=== PATIENT | male | born 1980 | race Caucasian/White ===

== ENCOUNTER 2016-10-08 21:54 | Emergency (ER) | payer MEDICAID ==
--- NOTE | 2016-10-08 23:01 | EDPHY ---
H & P HPI/ROS: Chief complaint: Left ankle injury History of present illness: 35-year-old male presents to the emergency department for a left ankle injury. Patient reports just prior to arrival he rolled his ankle. Since then he has had pain to the outer aspect of his ankle. He states last fall he broke his ankle in the same region. No report of open wounds, paresthesias or abnormal coolness to the left lower extremity. No other trauma reported. Smoking Status: Current every day smoker Physical Exam: General appearance: Alert, nontoxic Musculoskeletal: Tenderness over the lateral malleolus. The rest the ankle including over the Achilles is unremarkable. The knee, lower leg and foot are unremarkable. Vascular exam: Normal pulses and capillary refill in the foot Neurologic exam: The patient has normal sensation and motor function distal to the injury. Constitutional: Initial Vital Signs Temperature (C) 36.3 C 10/08/16 22:05 Heart Rate 89 10/08/16 22:05 Respiratory Rate 16 10/08/16 22:05 Blood Pressure 119/94 H 10/08/16 22:05 O2 Sat (%) 98 10/08/16 22:05 O2 Delivery Mode Room Air Allergies/Adverse Reactions: No Known Allergies Allergy (Verified 10/08/16 22:05) Home Medications: Medication Instructions Recorded Hydrocodone/APAP 5/325 [[place] 1 tab PO Q4 #6 tab 10/08/16 5/325 (*)] Medical Decision Making - Diagnostics Imaging: X-ray series of the left ankle reveals an acute distal fibular fracture in the same site as previous fracture versus a nonhealing fracture Procedures: Patient was placed in a [place] boot. ED Course/Re-evaluation: Patient seen under the supervision of my secondary supervising physician Dr. Laura Ortiz. Patient presents to the emergency department for left ankle injury. Lower extremity is neurovascularly intact. X-ray is concerning for acute fracture versus nonhealing fracture. He is placed in a [place] boot. By history and physical exam no evidence of trauma to other parts of the body. Patient is discharged home. Home care is discussed. He is referred to Orthopedics for continued evaluation and care. Return precautions given. Patient voiced understanding and agreement with plan. Departure - Departure Disposition: Home, Routine, Self-Care Clinical Impression: Ankle fracture Qualifiers: Encounter type: initial encounter Fracture type: closed Laterality: left Qualified Code(s): S82.892A - Other fracture of left lower leg, initial encounter for closed fracture Condition: Good Instructions: Ankle Fracture (ED) Additional Instructions: Follow-up with orthopedics for recheck If symptoms worsen or new symptoms develop return to the emergency department for recheck Referrals: NONE *PRIMARY CARE P,. [Primary Care Provider] - As per Instructions Nohemy Singer MD [Medical Doctor] - As per Instructions Prescriptions: Hydrocodone/APAP 5/325 [[place] 5/325 (*)] 1 tab PO Q4 #6 tab
[2016-10-08] MEDS ORDERED: HYDROCOD/APAP 5/325 PREPACK#6 BTL TAKEHOME ONE (23:13)
[2016-10-08 23:33] VITALS: BP 121/85; PULSE 85; RESP 20; TEMP 98.1; O2SAT 95
== END 2016-10-08 23:33 | disposition home or self-care (01) ==
DX: S82.892A Other fracture of left lower leg, initial encounter for closed fracture (principal); F17.200 Nicotine dependence, unspecified, uncomplicated; W18.39XA Other fall on same level, initial encounter
CPT/HCPCS: L4386

== ENCOUNTER 2017-04-22 16:00 | Emergency (ER) | payer MEDICAID ==
[2017-04-22 16:07] VITALS: RESP 16; TEMP 98.4
--- NOTE | 2017-04-22 17:29 | EDPHY ---
H & P Stated Complaint: l thigh pain HPI/ROS: Chief complaint: Left thigh pain History of present illness: This is a 36-year-old male who presents to the emergency department for left thigh pain. Patient was riding his skateboard when he fell off striking his left thigh against the ground. He has pain in the thigh since then. It hurts to ambulate. He denies other associated signs or symptoms including no open wounds. No abnormal coolness or paresthesias in the leg. No report of trauma to other parts of the body. - Personal History Current Tetanus/Diphtheria Vaccine: Unsure - Medical/Surgical History Hx Asthma: No Hx Chronic Respiratory Disease: No Hx Diabetes: No Hx Cardiac Disease: No Hx Renal Disease: No Hx Cirrhosis: No Hx Alcoholism: Yes Hx HIV/AIDS: No Hx Splenectomy or Spleen Trauma: No Other PMH: L leg fx - Social History Smoking Status: Current every day smoker - Physical Exam Exam: General: Alert, nontoxic Skin: No lesions consistent with trauma to the left leg Musculoskeletal: Mild tenderness left thigh. He is moving the left hip, left knee, left ankle and digits of the foot well. Muscle compartments of the left thigh are soft and pliable. He is ambulating well. Vascular: DP and PT pulses 2+. Neurologic: Sensation intact in the left leg. Constitutional: Initial Vital Signs Temperature (C) 36.9 C 04/22/17 16:05 Heart Rate 132 H 04/22/17 16:05 Respiratory Rate 16 04/22/17 16:05 Blood Pressure 119/79 04/22/17 16:05 O2 Sat (%) 96 04/22/17 16:05 O2 Delivery Mode Room Air Allergies/Adverse Reactions: No Known Allergies Allergy (Verified 10/08/16 22:05) Home Medications: Medication Instructions Recorded Hydrocodone/APAP 5/325 [[place] 1 tab PO Q4 #6 tab 10/08/16 5/325 (*)] Medical Decision Making - Diagnostics Imaging: I viewed and interpreted images myself ED Course/Re-evaluation: Patient seen under the supervision of my primary supervising physician Dr. Yael Louis. Patient presents to the emergency department for an injury to his left thigh. The leg is neurovascularly intact. X-rays negative. Likely contusion. Home care is discussed. Return precautions are given. Differential Diagnosis: Included but not limited to contusion, sprain or strain, bony fracture Departure - Departure Disposition: Home, Routine, Self-Care Clinical Impression: Contusion Qualifiers: Encounter type: initial encounter Contusion area: thigh Laterality: left Qualified Code(s): S70.12XA - Contusion of left thigh, initial encounter Condition: Good Instructions: Contusion in Adults (ED) Additional Instructions: Follow-up with a primary care doctor for recheck If symptoms worsen or new symptoms develop return to the emergency room for recheck Referrals: NONE *PRIMARY CARE P,. [Primary Care Provider] - As per Instructions
[2017-04-22 17:35] VITALS: BP 107/67; PULSE 97; O2SAT 95
== END 2017-04-22 17:39 | disposition home or self-care (01) ==
LOC: EDUNIT#
DX: S70.12XA Contusion of left thigh, initial encounter (principal); F17.200 Nicotine dependence, unspecified, uncomplicated; V00.131A Fall from skateboard, initial encounter; Y99.8 Other external cause status; Y93.51 Activity, roller skating (inline) and skateboarding

== ENCOUNTER 2017-05-29 12:26 | Emergency (ER) | payer MEDICAID ==
[2017-05-29 12:35] VITALS: BP 122/72; PULSE 79; RESP 16; TEMP 98.2; O2SAT 95
== END 2017-05-29 13:30 | disposition left against medical advice (07) ==
DX: Z53.21 Procedure and treatment not carried out due to patient leaving prior to being seen by health care provider (principal)

== ENCOUNTER 2017-06-03 12:12 | Emergency (ER) | payer MEDICAID, OTHER ==
[2017-06-03] MEDS ORDERED: TDAP ADULT 0.5 ML INJ (BOOSTRIX) IM ONE (12:18)
[2017-06-03 12:40] VITALS: PULSE 83
--- NOTE | 2017-06-03 12:57 | EDPHY ---
H & P Stated Complaint: laceration on forehead Source: Patient - Medical/Surgical History Hx Asthma: No Hx Chronic Respiratory Disease: No Hx Diabetes: No Hx Cardiac Disease: No Hx Renal Disease: No Hx Cirrhosis: No Hx Alcoholism: Yes Hx HIV/AIDS: No Hx Splenectomy or Spleen Trauma: No Other PMH: L leg fx - Social History Smoking Status: Current every day smoker HPI/ROS: HPI CHIEF COMPLAINT: Head injury, laceration of forehead, fall HISTORY OF PRESENT ILLNESS: This patient is a 36-year-old male otherwise healthy no significant medical history he was arrested at some point last night. He was in intermediate. In his own cell. He presents emergency room with a head injury right forehead hematoma and vertical laceration. Patient is unsure exactly what happened. Of note additionally there is a tongue laceration that is nonsuturable on the right side of his tongue. His possibly had a seizure. Patient does not recall any events. States he woke up and had a headache with a head injury. He does report that he smoked marijuana yesterday. Denies alcohol. He was rest at some point yesterday at the [employer] [facility] [employer]. Denies drug use. Denies seizure disorder. Tetanus shot has been updated here in emergency room. Past Medical History: Denies significant medical history Past Surgical History: Denies surgical history Social History: Marijuana use yesterday, denies illicit drugs or alcohol. Incarcerated currently in intermediate. Family History: Noncontributory. ROS REVIEW OF SYSTEMS: A comprehensive 10 point review of systems is otherwise negative aside from elements mentioned in the history of present illness. Exam Constitutional appears well nontoxic, triage nursing summary reviewed, vital signs reviewed, awake/alert. Eyes normal conjunctivae and sclera, EOMI, PERRLA. HENT head/neck: No midline cervical spine pain, no neck pain, forehead right- sided hematoma present, vertical laceration. Oropharynx shows a lateral tongue laceration nonsuturable. Right-sided. moist mucus membranes, no epistaxis, neck supple/ no meningismus, no raccoon eyes. Respiratory clear to auscultation bilaterally, normal breath sounds, no respiratory distress, no wheezing. Cardiovascular rate normal, regular rhythm, no murmur, no edema, distal pulses normal. Gastrointestinal soft, non-tender, no rebound, no guarding, normal bowel sounds, no distension, no pulsatile mass. Genitourinary no CVA tenderness. Musculoskeletal no midline vertebral tenderness, full range of motion, no calf swelling, no tenderness of extremities, no meningismus, good pulses, neurovascularly intact. Skin pink, warm, & dry, no rash, skin atraumatic. Neurologic awake, alert and oriented x 3, AAOx3, moves all 4 extremities equally, motor intact, sensory intact, CN II-XII intact, normal cerebellar, normal vision, normal speech. Psychiatric normal mood/affect. Heme/Lymph/Immune no lymphadenopathy. Differential Diagnosis: Includes but is not limited to in a particular order, closed-head injury, intracranial bleed, skull fracture, possible seizure, forehead hematoma, scalp hematoma, laceration Medical Decision Making: Plan for this patient IV established with IV fluid bolus, check basic blood work, CT head without contrast for trauma. Tetanus shot has been updated. Patient need is forehead laceration repaired. Re-evaluation: CT scan of the head without contrast reason for trauma. The results of the study are negative for acute traumatic in The study was read by Dr. Armijo I viewed the images myself on the PACS system. 1502: I did re-evaluate the patient this time is resting comfortably no complaints. His laceration on his forehead is been repaired. His CT scan shows no intracranial abnormality. Blood work has been reviewed. He is mentating appropriately acting normal. Normal neurological exam. Plan for discharge from the emergency room back to intermediate. It is possible he had a seizure. However this was unwitnessed. Bicarb normal. Understands return emergency room if develops worsening symptoms questions or concerns or new seizure activity. (Oliver Mckay) Constitutional: Initial Vital Signs Temperature (C) 36.9 C 06/03/17 12:34 Heart Rate 83 06/03/17 12:34 Respiratory Rate 16 06/03/17 12:34 Blood Pressure 127/97 H 06/03/17 12:34 O2 Sat (%) 97 06/03/17 12:34 O2 Delivery Mode Room Air Allergies/Adverse Reactions: No Known Allergies Allergy (Verified 05/29/17 12:31) Home Medications: Medication Instructions Recorded NK [No Known Home Meds] 05/29/17 Medical Decision Making - Diagnostics Imaging Results: Imaging Impressions Head CT 06/03/17 13:01 Impression: 1. Right frontal scalp hematoma. 2. Negative skull and brain. Results called and discussed with Oliver Mckay MD, at 06/03/2017 13:27 Final results are concordant with the initial interpretation. General information for patients regarding this examination can be found at [email or web address]. If you have questions or comments about this report, please contact me at (hospital) or [phone] (cell). Procedures: 1:45 p.m. My involvement the care this patient is solely for the procedure. Please see the note of Dr. Mckay for all other aspects of care PROCEDURE: Laceration repair Consent: Verbal Location: Forehead Length of repair: 2.5 cm Complexity: Complex Layer involvement: Single Anesthesia: Local per 1% lidocaine plain. 7 mL Irrigation: Extensive Debridement: None Procedure description: Following good anesthesia, the wound was copiously irrigated. Wound bed was explored and there is no foreign body noted. No exposure of the galea or frontalis. Wound borders were approximated well with good hemostasis. Tolerated well without complication. Suture/Staple material: 6-0 Prolene. Five simple interrupted sutures Wound care: Routine as discussed Suture/Staple removal: 5-7 Days (Bharathi Mohan) - Data Points Laboratory Results: Laboratory Results 06/03/17 13:00 06/03/17 13:00 06/03/17 06/03/17 06/03/17 14:05 13:00 13:00 WBC 7.36 10^3/uL 10^3/uL (3.80-9.50) RBC 4.16 10^6/uL L 10^6/uL (4.40-6.38) Hgb 13.5 g/dL L g/dL (13.7-17.5) Hct 39.5 % L % (40.0-51.0) MCV 95.0 fL fL (81.5-99.8) MCH 32.5 pg pg (27.9-34.1) MCHC 34.2 g/dL g/dL (32.4-36.7) RDW 13.2 % % (11.5-15.2) Plt Count 104 10^3/uL L 10^3/uL (150-400) MPV 10.0 fL fL (8.7-11.7) Neut % (Auto) 84.5 % H % (39.3-74.2) Lymph % (Auto) 5.8 % L % (15.0-45.0) [place] % (Auto) 8.8 % % (4.5-13.0) Eos % (Auto) 0.1 % L % (0.6-7.6) Baso % (Auto) 0.4 % % (0.3-1.7) Nucleat RBC Rel Count 0.0 % % (0.0-0.2) Absolute Neuts (auto) 6.21 10^3/uL 10^3/uL (1.70-6.50) Absolute Lymphs (auto) 0.43 10^3/uL L 10^3/uL (1.00-3.00) Absolute Monos (auto) 0.65 10^3/uL 10^3/uL (0.30-0.80) Absolute Eos (auto) 0.01 10^3/uL L 10^3/uL (0.03-0.40) Absolute Basos (auto) 0.03 10^3/uL 10^3/uL (0.02-0.10) Absolute Nucleated RBC 0.00 10^3/uL 10^3/uL (0-0.01) Immature Gran % 0.4 % % (0.0-1.1) Immature Gran # 0.03 10^3/uL 10^3/uL (0.00-0.10) Sodium 140 mEq/L mEq/L (134-144) Potassium 4.4 mEq/L mEq/L (3.5-5.2) Chloride 98 mEq/L mEq/L (97-110) Carbon Dioxide 31 mEq/l mEq/l (22-31) Anion Gap 11 mEq/L mEq/L (8-16) BUN 10 mg/dL mg/dL (7-23) Creatinine 0.8 mg/dL mg/dL (0.7-1.3) Estimated GFR > 60 Glucose 113 mg/dL H mg/dL (70-100) Calcium 10.0 mg/dL mg/dL (8.5-10.4) Urine Color YELLOW Urine Appearance CLEAR Urine pH 8.0 H (5.0-7.5) Ur Specific [place] 1.025 (1.002-1.030) Urine Protein 2+ H (NEGATIVE) Urine Ketones NEGATIVE (NEGATIVE) Urine Blood NEGATIVE (NEGATIVE) Urine Nitrate NEGATIVE (NEGATIVE) Urine Bilirubin NEGATIVE (NEGATIVE) Urine Urobilinogen 2.0 EU H EU (0.2-1.0) Ur Leukocyte Esterase NEGATIVE (NEGATIVE) Urine RBC 1-3 /hpf /hpf (0-3) Urine WBC 3-5 /hpf H /hpf (0-3) Ur Epithelial Cells TRACE /lpf /lpf (NONE-1+) Urine Mucus 2+ /lpf H /lpf (NONE-1+) Urine Glucose NEGATIVE (NEGATIVE) Urine Opiates Screen NEGATIVE (NEGATIVE) Urine Barbiturates NEGATIVE (NEGATIVE) Ur Phencyclidine Scrn NEGATIVE (NEGATIVE) Ur Amphetamine Screen NEGATIVE (NEGATIVE) U Benzodiazepines Scrn NEGATIVE (NEGATIVE) Urine Cocaine Screen NEGATIVE (NEGATIVE) U Marijuana (THC) Screen NON-NEGATIVE H (NEGATIVE) Medications Given: Discontinued Medications Acetaminophen (Tylenol) 1,000 mg PO EDNOW ONE Stop: 06/03/17 13:28 Last Admin: 06/03/17 13:28 Dose: 1,000 mg Diphtheria/Tetanus/Acell Pertussis (Boostrix) 0.5 ml IM .ONCE ONE Stop: 06/03/17 12:19 Last Admin: 06/03/17 12:21 Dose: 0.5 ml Sodium Chloride (Ns) 1,000 mls @ 0 mls/hr IV EDNOW ONE; Wide Open PRN Reason: Protocol Stop: 06/03/17 13:02 Last Admin: 06/03/17 13:28 Dose: 1,000 mls Departure - Departure Disposition: Home, Routine, Self-Care Clinical Impression: Forehead laceration Qualifiers: Encounter type: initial encounter Qualified Code(s): S01.81XA - Laceration without foreign body of other part of head, initial encounter Traumatic hematoma of forehead Qualifiers: Encounter type: initial encounter Qualified Code(s): S00.83XA - Contusion of other part of head, initial encounter Head injury Qualifiers: Encounter type: initial encounter Qualified Code(s): S09.90XA - Unspecified injury of head, initial encounter Condition: Good Instructions: Care For Your Stitches (ED), Laceration (ED), Head Injury (ED) Additional Instructions: 1.Please have her sutures removed in 7 days. 2. Return to the emergency room if develops any worsening symptoms includes worsening headache, vomiting. 3. As always with every laceration watch for infection this includes redness, drainage, pus. If she this return to the ER. Referrals: NONE *PRIMARY CARE P,. [Primary Care Provider] - As per Instructions
[2017-06-03] MEDS ORDERED: NS 1,000 ML IV ONE (13:01)
[2017-06-03 13:20] LABS: PLATELET COUNT 104 10^3/uL (150-400)
[2017-06-03] MEDS ORDERED: ACETAMINOPHEN 500 MG TAB ONE (13:24)
[2017-06-03] MEDS ORDERED: ACETAMINOPHEN 500 MG TAB PO ONE (13:27)
[2017-06-03 15:07] VITALS: BP 132/76; RESP 15; TEMP 99.5; O2SAT 96
--- NOTE | 2017-06-03 16:43 | ASDISCHSUM ---
Discharge Information Plan Status:Homeless/Fpc Medically Cleared to Leave: Discharge Date:06/03/2017 03:17 PM CM D/C Disposition:Law Enforcement/Court/Custodial ADT D/C Disposition:Home, Routine, Self-Care Projected Discharge Date:06/03/2017 03:17 PM Transportation at D/C: Discharge Delay Reason: Follow-Up Date:06/03/2017 03:17 PM Discharge Slot: Final Diagnosis: Placement Information Patient Contact Information Contact Name:CHARLIESADIA Relationship: Address: Home Phone: Work Phone: City: Alternate Phone: State/Zip Code: Email: Financial Information Financial Class:Commercial Primary Plan Desc:[facility] Primary Plan Number:[id number] Secondary Plan Desc: Secondary Plan Number: Assessment Information LACE LACE Emergency dept visits in Answers: 4+ last 6 months Score: 4 Date Signed: 06/03/2017 04:39 PM Electronically Signed By:Shaylee Sullivan RN Intervention Information
--- NOTE | 2017-06-03 16:43 | ASDISCHSUM ---
Discharge Information Plan Status:Homeless/Senior Care Medically Cleared to Leave: Discharge Date:06/03/2017 03:17 PM CM D/C Disposition:Law Enforcement/Court/Fpc ADT D/C Disposition:Home, Routine, Self-Care Projected Discharge Date:06/03/2017 03:17 PM Transportation at D/C: Discharge Delay Reason: Follow-Up Date:06/03/2017 03:17 PM Discharge Slot: Final Diagnosis: Placement Information Patient Contact Information Contact Name:CHARLIESADIA Relationship: Address: Home Phone: Work Phone: City: Alternate Phone: State/Zip Code: Email: Financial Information Financial Class:Commercial Primary Plan Desc:[facility] Primary Plan Number:[id number] Secondary Plan Desc: Secondary Plan Number: Assessment Information LACE LACE Emergency dept visits in Answers: 4+ last 6 months Score: 4 Date Signed: 06/03/2017 04:39 PM Electronically Signed By:Shaylee Sullivan RN Intervention Information
--- NOTE | 2017-06-03 16:43 | ASDISCHSUM ---
Discharge Information Plan Status:Homeless/Residential Medically Cleared to Leave: Discharge Date:06/03/2017 03:17 PM CM D/C Disposition:Law Enforcement/Court/Snf ADT D/C Disposition:Home, Routine, Self-Care Projected Discharge Date:06/03/2017 03:17 PM Transportation at D/C: Discharge Delay Reason: Follow-Up Date:06/03/2017 03:17 PM Discharge Slot: Final Diagnosis: Placement Information Patient Contact Information Contact Name:CHARLIESADIA Relationship: Address: Home Phone: Work Phone: City: Alternate Phone: State/Zip Code: Email: Financial Information Financial Class:Commercial Primary Plan Desc:[facility] Primary Plan Number:[id number] Secondary Plan Desc: Secondary Plan Number: Assessment Information LACE LACE Emergency dept visits in Answers: 4+ last 6 months Score: 4 Date Signed: 06/03/2017 04:39 PM Electronically Signed By:Shaylee Sullivan RN Intervention Information
== END 2017-06-03 15:17 | disposition home or self-care (01) ==
PROC: 0HQ1XZZ Repair Face Skin, External Approach (ICD-10-PCS; principal; 2017-06-03)
DX: S01.81XA Laceration without foreign body of other part of head, initial encounter (principal); F17.200 Nicotine dependence, unspecified, uncomplicated; E86.9 Volume depletion, unspecified; Z23 Encounter for immunization; X58.XXXA Exposure to other specified factors, initial encounter
CPT/HCPCS: 80305

== ENCOUNTER 2017-06-14 07:34 | Emergency (ER) | payer MEDICAID, OTHER ==
[2017-06-14] MEDS ORDERED: LORazepam 1 MG TAB PO ONE (07:43)
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
[2017-06-14] MEDS ORDERED: NS 1,000 ML IV ONE ×2 (09:02)
--- NOTE | 2017-06-14 09:21 | CPEKG ---
Heart Rate: 85 RR Interval: 706 P-R Interval: 160 QRSD Interval: 96 QT Interval: 352 QTC Interval: 419 P [place]: 78 QRS [place]: -89 T Wave [place]: 74 EKG Severity - ABNORMAL ECG - EKG Impression: SINUS RHYTHM EKG Impression: LEFT ANTERIOR FASCICULAR BLOCK Electronically Signed By: Jon Martinez 14-Jun-2017 09:23:43
[2017-06-14 09:23] VITALS: BP 128/90; RESP 18
[2017-06-14 09:30] LABS: % IMMATURE GRANULYOCYTES 0.4 % (0.0-1.1); ABSOLUTE IMMATURE GRANULOCYTES 0.02 10^3/uL (0.00-0.10); ADD DIFF? NO; ADD MORPH? NO; ADD SCAN? NO; ATYPICAL LYMPHOCYTE FLAG 0 (0-99); FRAGMENT RBC FLAG 0 (0-99); HEMATOCRIT 40.9 % (40.0-51.0); LEFT SHIFT FLG 0 (0-99); LIPEMIA HEMOLYSIS FLAG 90 (0-99); MEAN CELL HEMOGLOBIN CONCENTR. 34.2 g/dL (32.4-36.7); MEAN CELL VOLUME 93.6 fL (81.5-99.8); MEAN PLATELET VOLUME 9.1 fL (8.7-11.7); PLATELET CLUMPS FLAG 0 (0-99); PLATELET COUNT 232 10^3/uL (150-400); RED BLOOD CELL COUNT 4.37 10^6/uL (4.40-6.38); RED CELL DISTRIBUTION WIDTH 13.8 % (11.5-15.2)
[2017-06-14 09:38] LABS: INR 1.09 (0.83-1.16)
[2017-06-14 09:43] LABS: ALANINE AMINOTRANSFERASE 190 IU/L (21-72); ALBUMIN 4.6 g/dL (3.5-5.0); ALKALINE PHOSPHATASE 83 IU/L (38-126); ANION GAP 16 mEq/L (8-16); ASPARTATE AMINOTRANSFERASE 210 IU/L (17-59); BILIRUBIN-CONJUGATED 0.2 mg/dL (0.0-0.5); BILIRUBIN-UNCONJUGATED 0.8 mg/dL (0.0-1.1); CARBON DIOXIDE 25 mEq/l (22-31); CHLORIDE 100 mEq/L (97-110); CREATININE 0.8 mg/dL (0.7-1.3); GLOMERULAR FILTRATION RATE > 60; GLUCOSE 102 mg/dL (70-100); SODIUM 141 mEq/L (134-144)
[2017-06-14] MEDS ORDERED: IOPAMIDOL (ISOVUE-300) 100 ML BTL ONE (10:31)
[2017-06-14 12:03] VITALS: PULSE 86; TEMP 99.5; O2SAT 96
== END 2017-06-14 12:07 | disposition home or self-care (01) ==
LOC: EDUNIT#
DX: F10.10 Alcohol abuse, uncomplicated (principal); F17.200 Nicotine dependence, unspecified, uncomplicated; E86.9 Volume depletion, unspecified
CPT/HCPCS: Q9967

== ENCOUNTER 2017-08-06 09:42 | Inpatient (IN) | payer MEDICAID ==
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
[2017-08-06] MEDS ORDERED: OLANZapine DISINTEGR 5 MG TAB PO ONE (10:10)
[2017-08-06] MEDS ORDERED: LORazepam 2 MG/ML INJ IVP ONE (10:33)
[2017-08-06 10:38] LABS: PLATELET COUNT 129 10^3/uL (150-400)
[2017-08-06] MEDS ORDERED: OLANZapine DISINTEGR 10 MG TAB PO ONE (17:51)
[2017-08-07] MEDS ORDERED: NICOTINE 21 MG/24 HR PATCH TD ONE (11:13)
[2017-08-07] MEDS ORDERED: NICOTINE POLACRILEX 2 MG GUM B ONE (14:08)
[2017-08-08 12:48] VITALS: O2SAT 97
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
[2017-08-08] MEDS ORDERED: ACETAMINOPHEN 325 MG TAB PO PRN (15:45)
[2017-08-08] MEDS ORDERED: LORazepam 0.5 MG TAB PO PRN (15:45)
[2017-08-08] MEDS ORDERED: OLANZapine DISINTEGR 10 MG TAB PO PRN (15:45)
[2017-08-08] MEDS ORDERED: MAGNESIUM HYDROXIDE 30 ML UDCUP PO PRN (15:45)
[2017-08-08] MEDS ORDERED: MAG HYDROX/AL HYDROX/SIMETH 30 ML UDCUP PO PRN (15:45)
[2017-08-08] MEDS: NICOTINE 14 MG/24 HR PATCH TD SCH (16:18)
[2017-08-08] MEDS: NICOTINE POLACRILEX 2 MG GUM B PRN (16:18)
[2017-08-09 06:52] VITALS: BP 126/95; PULSE 70; RESP 14; TEMP 97.9
[2017-08-09] MEDS: NICOTINE 14 MG/24 HR PATCH TD SCH (11:10)
[2017-08-09] MEDS: NICOTINE POLACRILEX 2 MG GUM B PRN (11:13)
== END 2017-08-09 14:00 | disposition home or self-care (01) | DRG 885 ==
LOC: EDUNIT# → EEVIPCON 09:42 → BBEH 08-08 09:25
PROVIDERS: ADMIT Psychiatry & Neurology Behavioral Neurology & Neuropsychiatry; ATTEND Psychiatry & Neurology Behavioral Neurology & Neuropsychiatry
DX: F22 Delusional disorders (principal); S02.401A Maxillary fracture, unspecified side, initial encounter for closed fracture; F12.90 Cannabis use, unspecified, uncomplicated; Y09 Assault by unspecified means; Z59.0 Homelessness; Z72.0 Tobacco use
CPT/HCPCS: 80305; 96374; G0480; J2060

== ENCOUNTER 2017-10-07 11:50 | Emergency (ER) | payer MEDICAID ==
--- NOTE | 2017-10-07 12:21 | EDPHY ---
H & P Time Seen by Provider: 10/07/17 12:04 HPI/ROS: CHIEF COMPLAINT: "Pain to the head of my penis" HISTORY OF PRESENT ILLNESS: 36-year-old homeless immunocompetent non circumcised male complaining of 1 month of redness, swelling, pain to the glans of his penis, reproducible with retraction of foreskin. No dysuria, hematuria or increased frequency. No urethral discharge. No trauma. No straddle injury. No testicular pain. History of genital warts. PHYSICAL EXAM (Prior to examination, patient consented to physical exam, hands were washed and my usual and customary physical exam procedures followed) 1) GENERAL: Well-developed, well-nourished, alert and oriented. Appears to be in no acute distress. 2) HEAD: Normocephalic 3) HEENT: sclera anicteric 4) LUNGS: Breathing comfortably. 5) : Foreskin is retracted causing discomfort to the patient, the glans of the penis is erythematous, swollen. There is no urethral discharge. No fetid odor. Multiple genital warts noted. Scrotum unremarkable no signs of López' s gangrene, testicles nontender bilateral cremasteric reflex present and brisk. Smoking Status: Current every day smoker Constitutional: Initial Vital Signs Temperature (C) 37 C 10/07/17 11:53 Heart Rate 61 10/07/17 11:53 Respiratory Rate 20 10/07/17 11:53 Blood Pressure 135/93 H 10/07/17 11:53 O2 Sat (%) 97 10/07/17 11:53 O2 Delivery Mode Room Air Allergies/Adverse Reactions: No Known Allergies Allergy (Verified 10/07/17 11:53) Home Medications: Medication Instructions Recorded Nystatin/Triamcin 1 alexandra TP BID #45 oint...g. 10/07/17 [Nystatin-Triamcinolone Ointm] MDM/Departure - MDM ED Course/Re-evaluation: I think the patient's symptoms are more likely secondary to yeast balanitis.. We discussed some the challenges given his current homeless situation. Discussed penile cleansing. Plan will be discharged with topical antifungal. Doubt cellulitis. Doubt fourniers gangrene. Doubt cystitis. Care of patient under supervision of primary supervising physician Dr Groves - Depart Disposition: Home, Routine, Self-Care Clinical Impression: yeast balanitis Condition: Good Instructions: Balanitis (ED) Additional Instructions: Do not engage in sexual activity until you are symptom free. Return to the ER if you develop pain with urination, discharge from the penis or any other symptoms that concern you. Prescriptions: Nystatin/Triamcin [Nystatin-Triamcinolone Ointm] 1 alexandra TP BID #45 oint...g. Referrals: [facility],. [Clinic] - 5-7 days, call for appt.
[2017-10-07 13:06] VITALS: BP 128/78; PULSE 70; RESP 18; TEMP 98.6; O2SAT 95
== END 2017-10-07 13:06 | disposition home or self-care (01) ==
DX: B37.42 Candidal balanitis (principal); F17.200 Nicotine dependence, unspecified, uncomplicated

== ENCOUNTER 2018-02-06 15:54 | Emergency (ER) | payer MEDICAID, OTHER ==
--- NOTE | 2018-02-06 15:54 | EDPHY ---
H & P Time Seen by Provider: 02/06/18 15:54 Constitutional: Initial Vital Signs Temperature (C) 36.6 C 02/06/18 16:00 Heart Rate 170 H 02/06/18 16:00 Respiratory Rate 20 02/06/18 16:00 Blood Pressure 146/105 H 02/06/18 16:00 O2 Sat (%) 88 L 02/06/18 16:00 O2 Delivery Mode Room Air O2 (L/minute) 2 Allergies/Adverse Reactions: Unable to Assess Allergy (Unverified 02/06/18 16:13) Home Medications: Medication Instructions Recorded Nystatin/Triamcin 1 alexandra TP BID #45 oint...g. 10/07/17 [Nystatin-Triamcinolone Ointm] Medical Decision Making ED Course/Re-evaluation: CHIEF COMPLAINT: Meth and crack use HISTORY OF PRESENT ILLNESS: The patient is a 37 y/o male arriving via EMS on an [facility] hold placed by [employer] after taking crack and meth. Patient was found by bystanders who called EMS system. Patient has had multiple ER visits over the last several years for the same complaint. Patient denies any injuries denies loss of consciousness denies any recent trauma. Patient denies suicidal or homicidal behavior. He states he smoked "a little" crack and some "meth". The patient is agitated and not answering any further questions. REVIEW OF SYSTEMS: Unable to obtain secondary to patient's mental status. PHYSICAL EXAM: HR, BP, O2 Sat, RR. Temp noted General Appearance: Diaphoretic, alert, well hydrated, appropriate, and non- toxic appearing. Head: Atraumatic without scalp tenderness or obvious injury Eyes: Pupils equal, round, reactive to light and accommodation, EOMI, no trauma , no injection. Ears: Clear bilaterally, no perforation, normal landmarks Nose: Atraumatic, no rhinorrhea, clear. Throat: There is no erythema or exudates, no lesions, normal tonsils, mucus membranes moist. Neck: Supple, 2+ carotid upstroke, nontender, no lymphadenopathy. Respiratory: No retractions, no distress, no wheezes, and no accessory muscle use. Lungs are clear to auscultation bilaterally. Cardiovascular: Tachycardic, no murmurs, rubs, or gallops. Bilateral carotid, radial, dorsalis pedis, and posterior tibial pulses intact. Good capillary refill all extremities. Gastrointestinal: Abdomen is soft, nontender, non-distended, no masses, no rebound, no guarding, no peritoneal signs. Musculoskeletal: Normal active ROM of all extremities, atraumatic. Neurological: Alert, appropriate, and interactive. The patient has normal DTRs and non-focal cranial nerves, motor, sensory, and cerebellar exam. Skin: No rashes, good turgor, no nodules on palpation. Past medical history: Polysubstance abuse Past surgical history: Denies Family history: Denies Social history: Lives in [place], not employed, abuses drugs DIFFERENTIAL DIAGNOSIS: The differential diagnosis for the patient's altered mental status included but was not limited to hypoglycemia, infectious process, electrolyte abnormality, head injury, neurologic process, anemia, cardiac process, and intoxicants. MEDICAL DECISION MAKING: Patient is in no acute distress and is hemodynamically stable. We are awaiting for patient to sober up. Patient has known history of drug abuse and is here for evaluation. He is agitated, diaphoretic, and tachycardic. 2mg IM Ativan, 50mg IM Benadryl, and 10mg IM Haldol administered. 1554: I met EMS upon arrival 1807: Reassessed patient; he is somnolent. 2030: Patient care turned over to Dr. Martinez at shift change. (Daniel Barragan) 10:45 p.m. we are awaiting sobriety and transfer to the alcohol [facility]. Care transferred to Dr. Lujan at shift change. (Jon Martinez) - Data Points Medications Given: Lorazepam (Ativan Injection) 2 mg IM Q4HRS PRN PRN Reason: Anxiety, Unable to Take PO Stop: 08/05/18 16:06 Last Admin: 02/06/18 16:10 Dose: 2 mg Discontinued Medications Diphenhydramine HCl (Benadryl Injection) 50 mg IM EDNOW ONE Stop: 02/06/18 16:10 Last Admin: 02/06/18 16:10 Dose: 50 mg Haloperidol Lactate (Haldol Injection) 10 mg IM EDNOW ONE Stop: 02/06/18 16:10 Last Admin: 02/06/18 16:09 Dose: 10 mg Departure - Departure Disposition: Home, Routine, Self-Care Clinical Impression: Polysubstance abuse Instructions: Methamphetamine Abuse (ED), Polysubstance Abuse (ED) Additional Instructions: 1. Please refrain from abusing drugs. 2. Return to the emergency department immediately for fever, vomiting, confusion , headache, abdominal pain or other worsening of condition. 3. Followup with your primary care physician within 72 hours for reevaluation. Referrals: [facility] [Outside] - As per Instructions Report Scribed for: Daniel Barragan Report Scribed by: Ora Yang Date of Report: 02/06/18 Time of Report: 15:54
[2018-02-06] MEDS ORDERED: HALOPERIDOL LACT 5 MG/ML INJ ONE (16:02)
[2018-02-06] MEDS ORDERED: LORazepam 2 MG/ML INJ ONE (16:03)
[2018-02-06] MEDS ORDERED: LORazepam 2 MG/ML INJ IM PRN (16:07)
[2018-02-06] MEDS ORDERED: HALOPERIDOL LACT 5 MG/ML INJ IM ONE (16:09)
[2018-02-07 05:35] VITALS: BP 135/80
== END 2018-02-07 05:35 | disposition home or self-care (01) ==
LOC: EDUNIT#
DX: F19.10 Other psychoactive substance abuse, uncomplicated (principal)
CPT/HCPCS: J1200; J1630; J2060

== ENCOUNTER 2018-10-13 07:55 | Inpatient (IN) | payer MEDICAID ==
[2018-10-13] MEDS ORDERED: NS 1,000 ML IV ONE (08:14)
[2018-10-13] MEDS ORDERED: KETOROLAC 15 MG/1 ML SDV IVP ONE (08:39)
[2018-10-13] MEDS ORDERED: IOPAMIDOL (ISOVUE-300) 100 ML BTL ONE (08:49)
[2018-10-13 09:29] LABS: PLATELET COUNT 176 10^3/uL (150-400)
--- NOTE | 2018-10-13 09:40 | EDPHY ---
H & P Stated Complaint: right lower abd pain Time Seen by Provider: 10/13/18 07:58 HPI/ROS: CHIEF COMPLAINT: Lower abdominal pain radiating to the groin HISTORY OF PRESENT ILLNESS: This is a 37-year-old undomiciled male who presents with pain that he describes as being located in the lower right abdomen , right groin and perineal region. He has not been aware of flank pain. He denies testicular pain. He was seen in this emergency department a couple of days ago was diagnosed with balanitis. He did not fill the prescription that he was given for a topical medication. At that time he was apparently experiencing penile pain but states that this is not the case. He has a history of HPV, no other history of STDs. He denies new sexual contacts or risky sexual behavior. He has had no recent abdominal or genital trauma. He denies urinary urgency, frequency, and dysuria. He has not seen hematuria. He is moving his bowels without difficulty and has not had any blood in his stool. He has not had fever. He has not seen a skin rash. He has not noticed a bulging in the inguinal region. His pain is severely exacerbated by movement, particularly walking. REVIEW OF SYSTEMS: A ten system review of systems was performed and is negative with the exception of the items mentioned in the HPI. Past medical history: genital HPV Past surgical history: Negative Social history: He is on undomiciled. He smokes cigarettes. He states that he drinks alcohol socially. He denies the use of illicit drugs. General Appearance: Alert. Vital signs reviewed and normal except for a blood pressure of 133/81.. Eyes: Pupils equal and round, no conjunctival injection, no discharge. Anicteric. ENT, Mouth: Mucous membranes are moist, no oropharyngeal erythema or edema. Neck: No lymphadenopathy, supple. Respiratory: Lungs are clear to auscultation; no wheezes, rales, or rhonchi. Cardiovascular: Regular rate and rhythm; no murmur, rub, or gallop. Gastrointestinal: Abdomen is soft with mild tenderness in the right lower quadrant, no guarding, no masses or organomegaly, bowel sounds normal. No inguinal mass and no inguinal hernia appreciated on the right. Genitalia: Uncircumcised male. There are 3 hyper pigmented lesions on the shaft of his penis--each approximately 2-3 cm in diameter--these have been present for a very long time, per the patient. No rash or other lesions noted. No penile discharge. Bilaterally descended testes that are nontender and not enlarged. No swelling or fluctuance in the perineal region, no rash in the perineal region. Rectal. No tenderness or fluctuance in the perirectal region. No pain with gentle digital rectal exam. No internal masses appreciated. Skin: Warm and dry, no rashes on exposed skin, normal color. Back: Nontender to palpation over the thoracolumbar spine. No CVAT. Extremities: No lower extremity edema, no calf tenderness or swelling. Neurological: Alert and oriented. Moving all four extremities spontaneously. Psychiatric: Normal affect. - Personal History Current Tetanus/Diphtheria Vaccine: Unsure Current Tetanus Diphtheria and Acellular Pertussis (TDAP): Unsure - Medical/Surgical History Hx Asthma: No Hx Chronic Respiratory Disease: No Hx Diabetes: No Hx Cardiac Disease: No Hx Renal Disease: No Hx Cirrhosis: No Hx Alcoholism: Yes Hx HIV/AIDS: No Hx Splenectomy or Spleen Trauma: No Other PMH: L leg fx - Social History Smoking Status: Current every day smoker Constitutional: Initial Vital Signs Temperature (C) 36.8 C 10/13/18 08:03 Heart Rate 77 10/13/18 08:03 Respiratory Rate 18 10/13/18 08:03 Blood Pressure 133/81 H 10/13/18 08:03 O2 Sat (%) 94 10/13/18 08:03 O2 Delivery Mode Room Air Allergies/Adverse Reactions: No Known Allergies Allergy (Unverified 03/14/18 12:39) Home Medications: Medication Instructions Recorded NK [No Known Home Meds] 10/13/18 Medical Decision Making ED Course/Re-evaluation: CT scan of the abdomen and pelvis is negative for hernia. The appendix is not visualized but there are no inflammatory changes seen in the right lower quadrant. The CT scan performed today is unchanged compared to 1 done in 2017 under similar circumstances. I reviewed the patient's labs. CBC and chemistries are normal. Urinalysis is normal with the exception of ketones. Patient continued with pain, severe enough that he has been unable to get up and comfortably walk. He received Toradol with no relief. He then received two oral Vicodin. This patient has been serially examined. He has no perirectal pain or fluctuance. No rectal tenderness. I have examined his perineum and, although it is tender, I do not appreciate fluctuance. No penile drainage. He has no signs of cellulitis in the genital area. No rash. I spoke with the radiologist twice about the findings on the CT scan. I asked them to re-evaluate the perineal area. There is no evidence of inflammatory changes or soft tissue changes in the scrotal/perineal region. The patient has not had testicular or scrotal tenderness. He has been examined 4 times and is consistently without scrotal or testicular tenderness. He continues to have tenderness between the scrotum and the anus. He also has right groin tenderness. Shortly after noon the patient vomited. It is not clear to me what is causing his pain. I have not found evidence of López's gangrene. I think that necrotizing fasciitis is quite unlikely given the CT scan results and the normal CBC. I do not think that an STD would cause this kind of pain. There is nothing to suggest appendicitis on his CT. He does not have testicular tenderness and I think that torsion is quite unlikely. However, given that the source of his pain remains unknown, testicular ultrasound will be obtained. Testicular ultrasound is negative for torsion. Patient continues to be in significant pain, unable to walk. He has not requested narcotics from me. He is being admitted to the hospital for further evaluation and pain control. I do not know what is causing this pain -- primarily located in the perineal region. - Data Points Laboratory Results: Laboratory Results 10/14/18 04:15 10/13/18 08:10 Medications Given: Hydrocodone Bitart/Acetaminophen (Semora 5/325) 1 - 2 tab PO Q4HRS PRN PRN Reason: Pain, Moderate Able to Take PO Stop: 10/23/18 16:35 Last Admin: 10/14/18 18:09 Dose: 2 tab Cyclobenzaprine HCl (Flexeril) 10 mg PO TID PRN PRN Reason: Spasms Stop: 04/12/19 15:59 Last Admin: 10/14/18 22:09 Dose: 10 mg Gabapentin (Neurontin) 300 mg PO TID NIKI Stop: 04/11/19 16:44 Last Admin: 10/15/18 09:16 Dose: 300 mg Ketorolac Tromethamine (Toradol) 15 mg IVP Q6HRS PRN PRN Reason: Pain, Breakthrough Stop: 10/20/18 11:59 Last Admin: 10/15/18 09:16 Dose: 15 mg Nicotine (Nicoderm Cq) 14 mg TD DAILY NIKI Stop: 04/11/19 16:44 Last Admin: 10/15/18 09:16 Dose: 14 mg Ondansetron HCl (Zofran) 4 mg IVP Q4HRS PRN PRN Reason: Nausea/Vomiting, Can't Take PO Stop: 04/11/19 16:35 Last Admin: 10/13/18 22:43 Dose: 4 mg Oxycodone HCl (Oxycodone Ir) 5 - 10 mg PO Q3HRS PRN PRN Reason: Pain, Severe Able to Take PO Stop: 10/24/18 22:14 Last Admin: 10/14/18 22:18 Dose: 10 mg Promethazine HCl (Phenergan) 6.25 mg IVP Q6HRS PRN PRN Reason: Nausea/Vomiting, Can't Take PO Stop: 04/12/19 00:53 Last Admin: 10/14/18 01:04 Dose: 6.25 mg Discontinued Medications Hydrocodone Bitart/Acetaminophen (Semora 5/325) 2 tab PO EDNOW ONE Stop: 10/13/18 10:46 Last Admin: 10/13/18 10:53 Dose: 2 tab Sodium Chloride (Ns) 1,000 mls @ 0 mls/hr IV ONCE ONE PRN Reason: Wide Open Stop: 10/13/18 08:15 Last Admin: 10/13/18 08:15 Dose: 1,000 mls Ketorolac Tromethamine (Toradol) 15 mg IVP ONCE ONE Stop: 10/13/18 08:40 Last Admin: 10/13/18 09:25 Dose: 15 mg Ondansetron HCl (Zofran) 4 mg IVP EDNOW ONE Stop: 10/13/18 12:19 Last Admin: 10/13/18 12:48 Dose: 4 mg Departure - Departure Disposition: [facility] Clinical Impression: Perineal pain in male Condition: Good
[2018-10-13] MEDS ORDERED: HYDROCODONE/APAP 5/325 TAB PO ONE (10:45)
[2018-10-13] MEDS ORDERED: ONDANSETRON 4 MG/2 ML VIAL IVP ONE (12:18)
--- NOTE | 2018-10-13 13:59 | ASMTCMCOM ---
CM Note CM Note Notes: Reviewed chart. Pt presented to the Emergency Department with complaints of abdominal pain that radiates to the groin. History includes marijuana use, left leg fracture, prior head injury, prior acute paranoid psychosis, homelessness. Asked to see pt by PUNEET Quiñonez. Pt provided with information on [facility] for establishing a PCP following discharge from the hospital. Pt to be admitted for further evaluation and treatment. Pt is currently homeless. Pt reports that he has not been to the alf in quite some time. He does not currently utilize community or [facility] resources, although he may benefit from additional information. Discharge plan remains unclear at this time. CM will continue to follow. Discharge Plan: To be determined Date Signed: 10/13/2018 01:58 PM Electronically Signed By:Demi Swain RN
[2018-10-13] MEDS ORDERED: ACETAMINOPHEN 325 MG TAB PO PRN (16:36)
[2018-10-13] MEDS ORDERED: ONDANSETRON 4 MG/2 ML VIAL IVP PRN (16:36)
[2018-10-13] MEDS ORDERED: ONDANSETRON DISINTEGRATING 4 MG TAB PO PRN (16:36)
--- NOTE | 2018-10-13 16:41 | PDGENHP ---
History and Physical - Chief Complaint scrotal pain - History of Present Illness This is a 37 yo male who presented with 2 day hx of scrotal pain. Denies high risk sexual encounters. Denies hx of Herpes. Homeless In the ER he received Toradol and IVF with some improvement. CT A/P was unremarkable. US Testicular was unremarkable He says most of his pain in around the skin of scrotum, burning in sensation. Denies lesions or rash. No penile discharge. No abd pain. Afebrile PMHx: none PSHx: none SocHx: homeless, tobacco use, denies ETOH FmHx: non contributory History Information - Allergies/Home Medication List Allergies/Adverse Reactions: No Known Allergies Allergy (Unverified 03/14/18 12:39) Home Medications: NK [No Known Home Meds] 10/13/18 [Last Taken Unknown] I have personally reviewed and updated: medical history, social history - Social History Smoking Status: Current every day smoker Review of Systems Review of Systems: ROS: 10pt was reviewed & negative except for what was stated in HPI & below Physical Exam Physical Exam: Temp Pulse Resp BP Pulse Ox 36.9 C 73 16 122/76 H 96 10/13/18 16:14 10/13/18 16:14 10/13/18 16:14 10/13/18 16:14 10/13/18 16:14 Constitutional: no apparent distress Eyes: PERRL, EOMI Ears, Nose, Mouth, Throat: moist mucous membranes, hearing normal Cardiovascular: regular rate and rhythym Respiratory: no respiratory distress, no rales or rhonchi Gastrointestinal: normoactive bowel sounds, soft, non-tender abdomen Genitourinary: other (tender to touch base of scrotum. no penile tenderness or discharge. no erythema, rash, vesicles. ) Skin: warm Musculoskeletal: full muscle strength Neurologic: AAOx3 Psychiatric: interacting appropriately, not anxious, not encephalopathic Lymph, Heme, Immunologic: No petechiae Lab Data & Imaging Review 10/13/18 08:10 10/13/18 08:10 WBC 8.14 10^3/uL (3.80-9.50) 10/13/18 08:10 RBC 4.91 10^6/uL (4.40-6.38) 10/13/18 08:10 Hgb 15.0 g/dL (13.7-17.5) 10/13/18 08:10 Hct 43.8 % (40.0-51.0) 10/13/18 08:10 MCV 89.2 fL (81.5-99.8) 10/13/18 08:10 MCH 30.5 pg (27.9-34.1) 10/13/18 08:10 MCHC 34.2 g/dL (32.4-36.7) 10/13/18 08:10 RDW 14.2 % (11.5-15.2) 10/13/18 08:10 Plt Count 176 10^3/uL (150-400) 10/13/18 08:10 MPV 9.6 fL (8.7-11.7) 10/13/18 08:10 Neut % (Auto) 66.3 % (39.3-74.2) 10/13/18 08:10 Lymph % (Auto) 20.6 % (15.0-45.0) 10/13/18 08:10 Bureau % (Auto) 11.4 % (4.5-13.0) 10/13/18 08:10 Eos % (Auto) 0.9 % (0.6-7.6) 10/13/18 08:10 Baso % (Auto) 0.4 % (0.3-1.7) 10/13/18 08:10 Nucleat RBC Rel Count 0.0 % (0.0-0.2) 10/13/18 08:10 Absolute Neuts (auto) 5.40 10^3/uL (1.70-6.50) 10/13/18 08:10 Absolute Lymphs (auto) 1.68 10^3/uL (1.00-3.00) 10/13/18 08:10 Absolute Monos (auto) 0.93 10^3/uL (0.30-0.80) H 10/13/18 08:10 Absolute Eos (auto) 0.07 10^3/uL (0.03-0.40) 10/13/18 08:10 Absolute Basos (auto) 0.03 10^3/uL (0.02-0.10) 10/13/18 08:10 Absolute Nucleated RBC 0.00 10^3/uL (0-0.01) 10/13/18 08:10 Immature Gran % 0.4 % (0.0-1.1) 10/13/18 08:10 Immature Gran # 0.03 10^3/uL (0.00-0.10) 10/13/18 08:10 Sodium 136 mEq/L (135-145) 10/13/18 08:10 Potassium 4.3 mEq/L (3.5-5.2) 10/13/18 08:10 Chloride 101 mEq/L (97-110) 10/13/18 08:10 Carbon Dioxide 25 mEq/l (22-31) 10/13/18 08:10 Anion Gap 10 mEq/L (6-14) 10/13/18 08:10 BUN 11 mg/dL (7-23) 10/13/18 08:10 Creatinine 0.8 mg/dL (0.7-1.3) 10/13/18 08:10 Estimated GFR > 60 10/13/18 08:10 Glucose 91 mg/dL (70-100) 10/13/18 08:10 Calcium 8.8 mg/dL (8.5-10.4) 10/13/18 08:10 Urine Color YELLOW 10/13/18 10:50 Urine Appearance CLEAR 10/13/18 10:50 Urine pH 9.0 (5.0-7.5) H 10/13/18 10:50 Ur Specific [place] > 1.035 (1.002-1.030) H 10/13/18 10:50 Urine Protein NEGATIVE (NEGATIVE) 10/13/18 10:50 Urine Ketones 1+ (NEGATIVE) H 10/13/18 10:50 Urine Blood NEGATIVE (NEGATIVE) 10/13/18 10:50 Urine Nitrate NEGATIVE (NEGATIVE) 10/13/18 10:50 Urine Bilirubin NEGATIVE (NEGATIVE) 10/13/18 10:50 Urine Urobilinogen NEGATIVE EU (0.2-1.0) 10/13/18 10:50 Ur Leukocyte Esterase NEGATIVE (NEGATIVE) 10/13/18 10:50 Urine Glucose NEGATIVE (NEGATIVE) 10/13/18 10:50 Assessment & Plan Assessment: #Groin Pain, scrotal Pain Plan: unclear etiology in the differential would be herpes or zoster. I don't see active lesions. CT a/p and testicular US unremarkable, no torsion for now provide pain meds including gabapentin. reeval groin area tomorrow. check CRP Lipase not checked, but no abd pain
[2018-10-13] MEDS: HYDROCODONE/APAP 5/325 TAB PO PRN ×2 (16:44→20:45)
[2018-10-13] MEDS: NICOTINE 14 MG/24 HR PATCH TD SCH (17:08)
[2018-10-13] MEDS: GABAPENTIN 300 MG CAP PO SCH ×2 (17:08→20:44)
[2018-10-14] MEDS ORDERED: PROMETHAZINE HCL 25 MG/ML INJ IVP PRN (00:54)
[2018-10-14] MEDS: HYDROCODONE/APAP 5/325 TAB PO PRN ×3 (01:03→18:09)
[2018-10-14 04:59] LABS: PLATELET COUNT 139 10^3/uL (150-400)
[2018-10-14] MEDS: GABAPENTIN 300 MG CAP PO SCH ×3 (10:37→21:09)
[2018-10-14] MEDS: CYCLOBENZAPRINE 10 MG TAB PO PRN ×2 (10:37→22:09)
[2018-10-14] MEDS: NICOTINE 14 MG/24 HR PATCH TD SCH (10:39)
--- NOTE | 2018-10-14 14:54 | ASMTCMCOM ---
CM Note CM Note Notes: Met with patient to discuss possible discharge needs. Patient is currently homeless, staying on the streets. When asked if he has completed Coord[facility] Entry, patient stated, "I am not allowed to go." Patient denies the need for long-term reservation. He is open to a [facility] appointment - appt scheduled for October 17 @ 2:40 p.m. (instructions in [facility]). Attempted to meet with patient again to notify of appt time, sleeping soundly. CM will follow. Plan: Independent with [facility] F/U Date Signed: 10/14/2018 02:54 PM Electronically Signed By:Bella Corado RN
--- NOTE | 2018-10-14 17:14 | HOSPPROG ---
Hospitalist Progress Note Assessment/Plan: 37yo homeless M here with acute onset suprapubic, right inguinal and perineal pain. #Pain: Unclear etiology. - CT without appendix pathology, inguinal hernia, adenopathy - Testicular US negative for torsion, epididymitis/orchitis - Lumbar MRI negative for nerve compression - No rash on exam to suggest zoster - CRP normal - Trial topical lidocaine, gabapentin, norco #Inability to ambulate: 2/2 above - PT #Homeless: CM notified. Set up PCP appointment at [facility] on [facility] ppx: SCDs Code: full Dispo: Switch to inpatient as unsafe for dc Subjective: Lots of pain in suprapubic region extending around right inguinal region into perineum. Mild testicular pain. No penile discharge. Urinating ok. No fevers. He is unable to walk because of the discomfort. Objective: Vital Signs Temp Pulse Resp BP Pulse Ox 36.8 C 55 L 16 110/70 96 10/14/18 15:07 10/14/18 15:07 10/14/18 15:07 10/14/18 15:07 10/14/18 15:07 Laboratory Results 10/14/18 04:15 10/13/18 10/14/18 10/15/18 05:59 05:59 05:59 Intake Total 2360 Output Total 400 Balance 1959 - Physical Exam Constitutional: no apparent distress, appears nourished, not in pain Eyes: PERRL, anicteric sclera, EOMI Ears, Nose, Mouth, Throat: moist mucous membranes, hearing normal, ears appear normal, no oral mucosal ulcers Cardiovascular: regular rate and rhythym, no murmur, rub, or gallop Respiratory: no respiratory distress, no rales or rhonchi, clear to auscultation Gastrointestinal: normoactive bowel sounds, soft, non-tender abdomen, no palpable masses Genitourinary: other (extreme tenderness with palpation in right inguinal region , no obvious inguinal hernia on exam, no penile discharge) Skin: warm, no rashes or abrasions, no induration Musculoskeletal: full muscle strength Neurologic: AAOx3 Psychiatric: interacting appropriately ICD10 Worksheet Patient Problems: Problems Problem Status Onset Ankle fracture Acute Contusion Acute Maxillary sinus fracture Acute Psychosis Acute
[2018-10-14] MEDS ORDERED: oxyCODONE IR 5 MG TAB PO PRN (22:15)
[2018-10-15] MEDS: KETOROLAC 15 MG/1 ML SDV IVP PRN ×2 (09:16→15:35)
[2018-10-15] MEDS: NICOTINE 14 MG/24 HR PATCH TD SCH (09:16)
[2018-10-15] MEDS: GABAPENTIN 300 MG CAP PO SCH ×3 (09:16→21:35)
--- NOTE | 2018-10-15 10:42 | PDMN ---
Medical Necessity Medical necessity: Change to IP, as of 10/14/18, per MD & MCG [facility] General Discharge Criteria; los >2 mn for ongoing monitoring of acute onset suprapubic, R inguinal & perineal 03/15 pain of unclear etiology w/inability to ambulate; pt unsafe for dc; requiring pain management, therapy & CM consult for dc planning; hx homelessness
--- NOTE | 2018-10-15 12:22 | ASMTCMCOM ---
CM Note CM Note Notes: Plan of care reviewed in rounds. Patient continues to c/o pain. He would be open to a reserved fdc bed. CM to follow for needs. Plan: dc to fdc when medically cleared for discharge. Date Signed: 10/15/2018 12:22 PM Electronically Signed By:Bailey Orozco RN
--- NOTE | 2018-10-15 16:54 | HOSPPROG ---
Hospitalist Progress Note Assessment/Plan: 37yo homeless M here with acute onset suprapubic, right inguinal and perineal pain. #Pain: Unclear etiology. - CT without appendix pathology, inguinal hernia, adenopathy - Testicular US negative for torsion, epididymitis/orchitis - Lumbar MRI negative for nerve compression - Repeat testicular and inguinal US today negative - No rash on exam to suggest zoster - CRP normal - Will work on pain control with topical lidocaine, gabapentin, toradol #Inability to ambulate: 2/2 above - PT - cleared for home once pain controlled #Homeless: CM notified. [facility] ppx: SCDs Code: full Dispo: Remain inpatient, unsafe for discharge due to inability to ambulate, dc once pain controlled Subjective: Still with significant pain making it difficult to ambulate. Can only make it a few steps. Urinating ok and had BM today. Objective: Vital Signs Temp Pulse Resp BP Pulse Ox 36.8 C 68 16 114/71 97 10/15/18 15:23 10/15/18 15:23 10/15/18 15:23 10/15/18 15:23 10/15/18 15:23 10/14/18 10/15/18 10/16/18 05:59 05:59 05:59 Intake Total 1000 Balance 1000 - Physical Exam Constitutional: no apparent distress, appears nourished, not in pain Eyes: PERRL, anicteric sclera, EOMI Ears, Nose, Mouth, Throat: moist mucous membranes, hearing normal, ears appear normal, no oral mucosal ulcers Cardiovascular: regular rate and rhythym, no murmur, rub, or gallop Respiratory: no respiratory distress, no rales or rhonchi, clear to auscultation Gastrointestinal: normoactive bowel sounds, soft, non-tender abdomen, no palpable masses Genitourinary: no bladder fullness, no bladder tenderness, no renal bruits, other (no penile lesions or discharge, no scrotal erythema) Skin: other (exquisite tenderness over suprapubic area, right groin, perineum) Musculoskeletal: full muscle strength Neurologic: AAOx3 Psychiatric: interacting appropriately ICD10 Worksheet Patient Problems: Problems Problem Status Onset Perineal pain in male Acute Ankle fracture Acute Contusion Acute Maxillary sinus fracture Acute Psychosis Acute
[2018-10-15] MEDS: HYDROCODONE/APAP 5/325 TAB PO PRN (20:01)
[2018-10-16] MEDS: GABAPENTIN 300 MG CAP PO SCH ×3 (09:16→21:13)
[2018-10-16] MEDS: NICOTINE 14 MG/24 HR PATCH TD SCH (09:17)
[2018-10-16] MEDS: HYDROCODONE/APAP 5/325 TAB PO PRN ×3 (09:17→23:03)
--- NOTE | 2018-10-16 09:31 | HOSPPROG ---
Hospitalist Progress Note Assessment/Plan: # inguinal pain - most c/w neuropathic pain; very severe, not safe to ambulate currently - cont gabapentin, norco, lidocaine TP, capsaicin TP, voltaren - query if this is due to underlying psychiatric disease - has been admitted to [facility] # homelessness - cM involved # inability to ambulate - d/t pain Subjective: still with severe inguinal pain; very difficult to sit forward or ambulate Objective: Vital Signs Temp Pulse Resp BP Pulse Ox 36.4 C 60 18 100/65 97 10/16/18 04:42 10/16/18 04:42 10/16/18 04:42 10/16/18 04:42 10/16/18 04:42 10/15/18 10/16/18 10/17/18 05:59 05:59 05:59 Intake Total 1000 1850 Output Total 550 Balance [address]/MRI/US reviewed - Physical Exam Constitutional: uncomfortable (with any movement) Cardiovascular: regular rate and rhythym, no murmur, rub, or gallop Respiratory: no respiratory distress, no rales or rhonchi, clear to auscultation Gastrointestinal: soft, non-tender abdomen, no palpable masses Genitourinary: other (normal appearing scrotum and penis; no rash) ICD10 Worksheet Patient Problems: Problems Problem Status Onset Ankle fracture Acute Contusion Acute Psychosis Acute Maxillary sinus fracture Acute Perineal pain in male Acute
[2018-10-16] MEDS: CAPSAICIN 0.025% CREAM TP SCH ×3 (11:45→21:15)
[2018-10-16] MEDS: DICLOFENAC SODIUM 1% 100 GM GEL TP SCH ×3 (12:00→21:13)
[2018-10-17] MEDS: DICLOFENAC SODIUM 1% 100 GM GEL TP SCH ×4 (07:29→22:06)
[2018-10-17] MEDS: NICOTINE 14 MG/24 HR PATCH TD SCH (09:12)
[2018-10-17] MEDS: GABAPENTIN 300 MG CAP PO SCH ×3 (09:12→22:04)
[2018-10-17] MEDS: HYDROCODONE/APAP 5/325 TAB PO PRN ×3 (09:24→22:03)
[2018-10-17] MEDS: CAPSAICIN 0.025% CREAM TP SCH ×2 (11:17→17:24)
--- NOTE | 2018-10-17 11:52 | ASMTCMCOM ---
CM Note CM Note Notes: Patient plan of care reviewed in rounds. 37 year old male day 2+ hospitalization for c/o testicular pain. No etiology found on diagnostics. Call to Simone at [facility] who states patient has had behavioral issues in the past and was in fact to have a meeting yesterday for consideration of re-entry. [facility] at this point in time. Will inform patient of his need to call and reschedule meeting with [facility] administration. Plan: Likely to discharge to the streets. Date Signed: 10/17/2018 11:51 AM Electronically Signed By:Bailey Orozco RN
--- NOTE | 2018-10-17 16:00 | HOSPPROG ---
Hospitalist Progress Note Assessment/Plan: # inguinal pain - most c/w neuropathic pain; also consider malingering or psychosomatic; very severe, not safe to ambulate currently - cont gabapentin, norco, lidocaine TP, capsaicin TP, voltaren # homelessness - CM involved # inability to ambulate - d/t pain Subjective: still severe pain but slightly improved from yesterday; capsaicin caused pain; voltaren works slightly Objective: Vital Signs Temp Pulse Resp BP Pulse Ox 36.6 C 80 16 115/71 96 10/17/18 14:38 10/17/18 14:38 10/17/18 14:38 10/17/18 14:38 10/17/18 14:38 10/16/18 10/17/18 10/18/18 05:59 05:59 05:59 Intake Total 1850 3500 Output Total 550 2300 600 Balance 1300 1200 -600 - Physical Exam Constitutional: no apparent distress, appears nourished Eyes: No icteric sclera Ears, Nose, Mouth, Throat: hearing normal Cardiovascular: No edema Respiratory: no respiratory distress Gastrointestinal: No distension Genitourinary: other (normal penis and scrotum; no rash) Skin: warm Musculoskeletal: full muscle strength Neurologic: AAOx3 ICD10 Worksheet Patient Problems: Problems Problem Status Onset Ankle fracture Acute Contusion Acute Psychosis Acute Maxillary sinus fracture Acute Perineal pain in male Acute
[2018-10-17] MEDS: LIDOCAINE 2% JELLY 6 ML TOPICAL SYR TP PRN (16:07)
--- NOTE | 2018-10-17 16:43 | ASMTCMCOM ---
CM Note CM Note Notes: Spoke to patient about prison situation. Per Simone patient has to go through coordinated entry as is not eligible to stay. 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 I empathized with him and suggest he call Simone to organize another meeting as he missed one yesterday. He states if he does then he is trespassing He is to have visitation with child tomorrow. He denies having any family that can help. Plan: Dc to street. Date Signed: 10/17/2018 04:43 PM Electronically Signed By:Bailey Orozco RN
[2018-10-18] MEDS: DICLOFENAC SODIUM 1% 100 GM GEL TP SCH ×4 (06:39→21:02)
[2018-10-18] MEDS: GABAPENTIN 300 MG CAP PO SCH ×3 (08:48→21:03)
[2018-10-18] MEDS: NICOTINE 14 MG/24 HR PATCH TD SCH (08:50)
[2018-10-18] MEDS: HYDROCODONE/APAP 5/325 TAB PO PRN ×3 (08:53→21:04)
[2018-10-18] MEDS: LIDOCAINE 2% JELLY 6 ML TOPICAL SYR TP PRN ×2 (13:06→21:54)
--- NOTE | 2018-10-18 15:00 | HOSPPROG ---
Hospitalist Progress Note Assessment/Plan: # inguinal pain - most c/w neuropathic pain; also consider malingering or psychosomatic; very severe, not safe to ambulate currently - cont gabapentin, norco, lidocaine TP, voltaren - will ask for a neurology evaluation as i am still unclear on what is causing this # homelessness - CM involved # inability to ambulate - d/t pain Subjective: Still with pain it although it is slowly getting better; he tells me he fell but did not hurt himself Objective: Vital Signs Temp Pulse Resp BP Pulse Ox 36.6 C 57 L 16 102/60 96 10/18/18 08:00 10/18/18 08:00 10/18/18 08:00 10/18/18 08:00 10/18/18 08:00 10/17/18 10/18/18 10/19/18 05:59 05:59 05:59 Intake Total 3500 350 Output Total 2300 600 550 Balance 1200 -250 -550 - Physical Exam Constitutional: other (comfortable, sitting up in bed) Eyes: anicteric sclera Ears, Nose, Mouth, Throat: hearing normal Cardiovascular: No edema Respiratory: no respiratory distress Gastrointestinal: No distension Genitourinary: No abdalla in urethra Skin: warm Musculoskeletal: full muscle strength Neurologic: AAOx3 ICD10 Worksheet Patient Problems: Problems Problem Status Onset Ankle fracture Acute Contusion Acute Psychosis Acute Maxillary sinus fracture Acute Perineal pain in male Acute
[2018-10-19] MEDS: DICLOFENAC SODIUM 1% 100 GM GEL TP SCH ×2 (04:57→12:54)
[2018-10-19 08:03] VITALS: BP 101/65
[2018-10-19] MEDS ORDERED: GABAPENTIN 300 MG CAP PO SCH ×2 (11:30→16:00)
[2018-10-19] MEDS ORDERED: LIDOCAINE 4%/MENTHOL 1% PATCH TD SCH (12:45)
[2018-10-19] MEDS: HYDROCODONE/APAP 5/325 TAB PO PRN (12:51)
[2018-10-19] MEDS: NICOTINE 14 MG/24 HR PATCH TD SCH (12:52)
[2018-10-19] MEDS: GABAPENTIN 300 MG CAP PO SCH (12:52)
--- NOTE | 2018-10-19 13:30 | HOSPPROG ---
Hospitalist Progress Note Assessment/Plan: #Right thigh/inguinal pain: "burning in nature" -unclear etiology: negative abd CT, U/S groin. Negative CRP, UA -check CK. Add Lidoderm patch, Toradol -PT/OT -thoracic MRI with DJD -Neuro evaluated. No neurologic findings -question malingering? -FU outpatient Urology for cystoscopy Disp: will have PT re-eval. Subjective: right thigh pain persists, worse with moving Objective: Vital Signs Temp Pulse Resp BP Pulse Ox 36.8 C 58 L 16 101/65 96 10/19/18 07:59 10/19/18 07:59 10/19/18 07:59 10/19/18 07:59 10/19/18 07:59 10/18/18 10/19/18 10/20/18 05:59 05:59 05:59 Intake Total 350 1350 Output Total 600 1200 Balance -250 150 - Time Spent With Patient Time Spent with Patient: greater than 35 minutes Time Spent with Patient: Greater than 35 minutes spent on this patients care, greater than 50% of time spent counseling, educating, and coordinating care regarding the above mentioned plan. - Physical Exam Constitutional: no apparent distress Ears, Nose, Mouth, Throat: moist mucous membranes Cardiovascular: regular rate and rhythym Respiratory: no respiratory distress Gastrointestinal: normoactive bowel sounds Genitourinary: no bladder fullness, other (no penile, inguinal swelling, redness ) Skin: warm Musculoskeletal: other (TTP along medial right thigh/groin [id number] to exam. No overyling redness, swelling, lesions) ICD10 Worksheet Patient Problems: Problems Problem Status Onset Perineal pain in male Acute Ankle fracture Acute Contusion Acute Maxillary sinus fracture Acute Psychosis Acute
[2018-10-19 14:18] LABS: CREATINE KINASE 80 IU/L (0-224)
--- NOTE | 2018-10-19 16:17 | ASMTDCNOTE ---
Case Management Discharge Discharge Order Complete? Answers: Yes Patient to Obtain Answers: Independently Medications Discharge Comments Notes: 10/19/2018 Case Management Note Unable to make [facility] appointment on the weekend. Clinic is closed. Provided [facility] address and phone number to patient. Provided location of cold weather intermediate plus coordinated entry address to patient for intermediate tonight. Contacted [facility] counseling case manager to follow after discharge[facility] No further case management d/c needs identified. Date Signed: 10/19/2018 04:17 PM Electronically Signed By:Neelam Guzman RN
--- NOTE | 2018-10-19 16:21 | ASDISCHSUM ---
Discharge Information Plan Status:Homeless/[facility] Medically Cleared to Leave:10/19/2018 Discharge Date:10/19/2018 CM D/C Disposition:Home, Routine, Self-Care ADT D/C Disposition:Home, Routine, Self-Care Projected Discharge Date:10/19/2018 Transportation at D/C: Discharge Delay Reason: Follow-Up Date:10/19/2018 Discharge Slot: Final Diagnosis: Placement Information Patient Contact Information Contact Name:GEMINI Relationship: Address: Home Phone: Work Phone: City: Alternate Phone: State/Zip Code: Email: Financial Information Financial Class:Medicaid Primary Plan Desc:MEDICAID HEALTH [facility] Primary Plan Number:[id number] Secondary Plan Desc: Secondary Plan Number: Assessment Information LACE LACE Length of stay for Answers: 4-6 days current admission Acuity / Level of Answers: Yes Care: Did the patient have an inpatient admission? Comorbidities - select Answers: Other Notes: Prior head injury all that apply # of Emergency department Answers: 3-4 visits in the last 6 months Social determinants Answers: History of substance abuse (ETOH, street drugs, prescription drugs, etc.) Homelessness (street, long-term) Mental health diagnosis (anxiety, depression, pers onality disorders, etc.) Lack of community resources and/or lack of social support (no pcp, lives alone, transportation, sharri d) Score: 24 Date Signed: 10/19/2018 04:20 PM Electronically Signed By:Neelam Guzman RN [facility] CM Progress Note CM Note CM Note Notes: Reviewed chart. Pt presented to the Emergency Department with complaints of abdominal pain that radiates to the groin. History includes marijuana use, left leg fracture, prior head injury, prior acute paranoid psychosis, homelessness. Asked to see pt by PUNEET Quiñonez. Pt provided with information on [facility] for establishing a PCP following discharge from the hospital. Pt to be admitted for further evaluation and treatment. Pt is currently homeless. Pt reports that he has not been to the long-term in quite some time. He does not currently utilize community or [facility] resources, although he may benefit from additional information. Discharge plan remains unclear at this time. CM will continue to follow. Discharge Plan: To be determined Date Signed: 10/13/2018 01:58 PM Electronically Signed By:Demi Swain RN [facility] CM Progress Note CM Note CM Note Notes: Met with patient to discuss possible discharge needs. Patient is currently homeless, staying on the streets. When asked if he has completed Coordinated Entry, patient stated, "I am not allowed to go." Patient denies the need for long-term reservation. He is open to a [facility] appointment - appt scheduled for October 17 @ 2:40 p.m. (instructions in [employer]). Attempted to meet with patient again to notify of appt time, sleeping soundly. CM will follow. Plan: Independent with [facility] F/U Date Signed: 10/14/2018 02:54 PM Electronically Signed By:Bella Corado RN [facility] CM Progress Note CM Note CM Note Notes: Plan of care reviewed in rounds. Patient continues to c/o pain. He would be open to a reserved long-term bed. CM to follow for needs. Plan: dc to long-term when medically cleared for discharge. Date Signed: 10/15/2018 12:22 PM Electronically Signed By:Bailey Orozco RN [facility] Progress Note CM Note CM Note Notes: Patient plan of care reviewed in rounds. 37 year old male day 2+ hospitalization for c/o testicular pain. No etiology found on diagnostics. Call to Simone at [facility] who states patient has had behavioral issues in the past and was in fact to have a meeting yesterday for consideration of re-entry. We are unable to send the patient to the long-term at this point in time. Will inform patient of his need to call and reschedule meeting with long-term administration. Plan: Likely to discharge to the streets. Date Signed: 10/17/2018 11:51 AM Electronically Signed By:Bailey Orozco RN [facility] Progress Note CM Note CM Note Notes: Spoke to patient about long-term situation. Per Simone patient has to go through coordinated entry as is not eligible to stay. 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 I empathized with him and suggest he call Simone to organize another meeting as he missed one yesterday. He states if he does then he is trespassing He is to have visitation with child tomorrow. He denies having any family that can help. Plan: Dc to street. Date Signed: 10/17/2018 04:43 PM Electronically Signed By:Bailey Orozco RN Case Management Discharge Plan Note Case Management Discharge Discharge Order Complete? Answers: Yes Patient to Obtain Answers: Independently Medications Discharge Comments Notes: 10/19/2018 Case Management Note Unable to make [facility] appointment on the weekend. Clinic is closed. Provided [facility] address and phone number to patient. Provided location of cold weather long-term plus coordinated entry address to patient for long-term tonight. Contacted [facility] case management director to follow after discharge. [facility] referral. No further case management d/c needs identified. Date Signed: 10/19/2018 04:17 PM Electronically Signed By:Neelam Guzman RN Intervention Information
--- NOTE | 2018-10-19 16:23 | GDS ---
[f rep st] DISCHARGE SUMMARY DISCHARGE DIAGNOSES: 1. Right thigh/inguinal pain. 2. Homelessness. CONSULTATIONS: Neurology. HISTORY OF PRESENT ILLNESS: A 37-year-old homeless male presents with 2 days of scrotal pain. He en dorsed right thigh and inguinal pain. Denies trauma, twisting, or heavy lifting. No dysuria. In th e ER, CT was unremarkable. Testicular ultrasound was unremarkable. He was admitted for further eval uation because he could not ambulate. HOSPITAL COURSE BY PROBLEM: Right thigh/inguinal pain: Has had an extensive evaluation here that nguyễn s been unremarkable including CT abdomen and pelvis, 2 testicular ultrasounds. Had a lumbar/thoracic MRI showing mild thoracic degeneration and small 2 mm disk herniation. Inflammatory markers, CK wer e normal. UA negative. Upon review, he has had multiple ER visits and hospitalizations for similar pains. He denies abuse which can lead to somatic pelvic pain. Neurology evaluated. No focal defici ts. Recommend outpatient urology for cystoscopy. Continue gabapentin and Lidoderm patch for pain co ntrol. DISPOSITION: Patient stable to discharge home. HOME MEDICATIONS: Lidoderm patch, gabapentin. FOLLOWUP: 1. [facility]. 2. Urology consult for cystoscopy. Time spent on discharge greater than 30 minutes coordinating discharge, discussing case with Neurolog y. /[id number]/MODL
--- NOTE | 2018-10-19 16:39 | GCON ---
[f rep st] CONSULTATION NEUROLOGY CONSULT CHIEF COMPLAINT: Groin and thigh pain. HISTORY OF PRESENT ILLNESS: Mr. Torres is a 37-year-old gentleman who has been to our emergency department 14 times in the last approximately 4-1/2 years. I went through each and every visit on my own and with the patient. In summary, the majority of the 14 visits was related to either leg, groin, testicular, or genital pain. He has had extensive imaging without structural etiology found. With this hospitalization, he had an MRI of his lumbar spine and thoracic spine. Both of these studies were negative for a structural cause for his pain. He has had 2 testicular ultrasounds during this hospitalization, which were negative for torsion. Indeed, his actual first ER visit on August 01, 2014, was for testicular pain. At that time, there was no torsion found. He has not seen a urologist yet. He has no focal numbness or weakness. No bulbar symptoms. No constitutional symptoms. No significant back pain. He describes a "deep aching" groin pain that is more to the right, but goes across his genitalia area, perineum, and a little bit into the left thigh without back pain or radiation into his legs. He does not endorse burning, electrical sensations or other paresthesias typical of neuropathic pain. REVIEW OF SYSTEMS: Was done and only pertinent in the HPI. Of specific note, he denies a history of sexual, physical, or emotional abuse. For past medical history, social history, family history, home medications, allergies, see Dr. Correa's history and physical. PHYSICAL EXAM: VITAL SIGNS: 101/65, temperature 36.8, heart rate 60s to 70s. GENERALLY: He is very pleasant and did not appear in pain when I came to the room. He was using his phone. I then asked him to walk and he started talking about his pain. He was able to walk back and forth across the room independently without a gait aid. However, there was significant pain behavior present to truly analyze his underlying gait. There was no specific ataxia noted outside of extreme antalgic gait features. There may have been an element of astasia-abasia. On motor exam, there is no focal weakness and muscle tone is normal. DTRs are normal all throughout without asymmetry or pathologic reflexes. Toes are downgoing bilaterally. Sensory exam is normal to light touch in all 4 extremities. I note previous general medical exams which note normal genitourinary exam. Indeed, when he came into the hospital, his chief complaint to the doctor was scrotal pain, but it is apparently changed over the course of his hospitalization.Certainly, the exam was incomplete due to the high level of pain behavior on exam. The patient refused to participate full neurologic exam. IMPRESSION/PLAN: 1. Groin/pelvic pain, no etiology found. This patient has had multiple emergency department visits in the last 4-1/2 years, as noted above, for similar symptoms without any structural cause found. He denies a history of physical, emotional, or sexual abuse. There are no definite abnormal findings on neurologic exam. Certainly, the exam was incomplete due to the high level of pain behavior on exam. The patient refused to participate full neurologic exam. Reflexes are normal. Toes are downgoing bilaterally. I counseled the patient that I do not see a neurogenic cause at this point based on his extensive history, imaging, and exam for his pain. I recommend outpatient urology consultation at the [facility] for further evaluation of his genitourinary system. Further consultations within the system could be made after the urology evaluation. The patient is agreeable. I would avoid any narcotic or opiate-type medications which could propagate this pain. The patient understands and is agreeable. No further recommendations. We will continue to follow as needed. Please do not hesitate to call if there are any questions or changes in this patient's neurologic status. Seventy total minutes floor time today in reviewing records dating back to 2013 and current records; over 50% in direct counseling and coordination of care. /[id number]/MODL MTDD
[2018-10-19] MEDS ORDERED: PATCH REMOVAL 1 EA PATCH TD SCH (21:00)
== END 2018-10-19 16:20 | disposition home or self-care (01) | DRG 251 ==
LOC: EDUNIT# → F1N 13:55 → OBSVTOIN 10-14 17:14
PROVIDERS: ADMIT Family Medicine; ATTEND Family Medicine
DX: R10.31 Right lower quadrant pain (principal); M51.24 Other intervertebral disc displacement, thoracic region; M51.34 Other intervertebral disc degeneration, thoracic region; M79.651 Pain in right thigh; Z59.0 Homelessness; Z72.0 Tobacco use
CPT/HCPCS: 96374; 97116-GP; 97161-GP; G0378; J1885; J2405; J2550; Q9967

== ENCOUNTER 2018-10-20 00:16 | Emergency (ER) | payer MEDICAID ==
[2018-10-20 00:25] VITALS: BP 100/82
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
== END 2018-10-20 01:50 | disposition home or self-care (01) ==
DX: G89.29 Other chronic pain (principal); Z76.5 Malingerer [conscious simulation]